=== PATIENT | male | born 1960 | race Caucasian/White ===

== ENCOUNTER 2025-11-23 17:24 | Emergency (ER) | payer OTHER ==
[~2025-11-23] VITALS: Ht 172.7 cm; Wt 97.0 kg
[2025-11-23] MEDS ORDERED: HYDROCODONE BIT/ACETAMINOPHEN 5/325 MG 1 TAB HOME.PACK PO ONE (18:00)
[2025-11-23] MEDS ORDERED: HYDROCODON-ACE1 EA10 PO (18:31)
[2025-11-23 18:54] VITALS: BP 120/80
== END 2025-11-23 18:55 | disposition home or self-care (01) ==
LOC: ED 17:24
DX: R07.89 Other chest pain (principal); J45.909 Unspecified asthma, uncomplicated; I10 Essential (primary) hypertension
CPT/HCPCS: 71045; 99285-25; A9270